=== PATIENT | female | born 1945 | race Caucasian/White ===

== ENCOUNTER 2022-10-03 15:17 | Outpatient (CLI) | payer MEDICARE, SELFPAY ==
--- NOTE | 2022-10-03 14:45 | DI.RAD_ITS ---
Exam(s) XR KNEE LT 3V AP,LAT,MOISES EXAM: XR KNEE LT 3V AP,LAT,MOISES CLINICAL HISTORY: Right knee pain. TECHNIQUE: 2D digital imaging was performed. COMPARISON: No exams were available for comparison FINDINGS: 3 views No evidence of acute fracture nor obvious joint effusion. No obvious degenerative changes nor osseou s lesions. Some calcification is noted in the popliteal artery. May indicate atherosclerotic involv ement. IMPRESSION: No significant osseous findings left knee. No obvious joint effusion. Vascular calcification noted popliteal artery. I note this patient has numerous endovascular stents in the arteries of the opposite leg. DATA REPOSITORY: RADIATION DOSE DELIVERED:
--- NOTE | 2022-10-03 14:45 | DI.RAD_ITS ---
Exam(s) XR KNEE RT 3V AP,LAT,MOISES EXAM: XR KNEE RT 3V AP,LAT,MOISES CLINICAL HISTORY: RIght knee pain. TECHNIQUE: 2D digital imaging was performed. COMPARISON: No exams were available for comparison FINDINGS: 3 views No evidence fracture but there is a joint effusion signifying probable internal derangement. There i s no prominent joint space narrowing. No osteophytes. Bone density normal. No osseous lesions. Th ere multiple telescoping endoscopic vascular stents in the distal half of the femoral artery and prox imal half of the popliteal artery. IMPRESSION: No osseous lesions knee but there is a prominent knee joint effusion signifying probable internal tiffany angement. Multiple endovascular stents in the femoral artery. DATA REPOSITORY: RADIATION DOSE DELIVERED:
== END 2022-10-03 15:18 | disposition home or self-care (01) ==
LOC: DIORS 15:17
PROVIDERS: PCP Student in an Organized Health Care Education/Training Program; Referring Provider Student in an Organized Health Care Education/Training Program; Visit Provider Student in an Organized Health Care Education/Training Program
DX: M17.11 Unilateral primary osteoarthritis, right knee; M23.203 Derangement of unspecified medial meniscus due to old tear or injury, right knee; M79.18 Myalgia, other site; G89.4 Chronic pain syndrome
CPT/HCPCS: 20610; 73562; 99204; J1030

== ENCOUNTER → 2022-12-05 14:50 | Outpatient (BNVA) | payer MEDICARE, SELFPAY | PROVIDERS: PCP Student in an Organized Health Care Education/Training Program; Referring Provider Student in an Organized Health Care Education/Training Program; Visit Provider Student in an Organized Health Care Education/Training Program | DX: X58.XXXA Exposure to other specified factors, initial encounter; M17.11 Unilateral primary osteoarthritis, right knee; M79.18 Myalgia, other site; S83.281A Other tear of lateral meniscus, current injury, right knee, initial encounter | CPT/HCPCS: 99214 ==

== ENCOUNTER 2023-01-07 10:26 | Outpatient (CLI) | payer MEDICARE, SELFPAY ==
--- NOTE | 2023-01-07 08:45 | DI.RAD_ITS ---
Exam(s) XR STANDING ALIGNMENT EXAM: XR STANDING ALIGNMENT CLINICAL HISTORY: eval aligment, preop TKA planning. TECHNIQUE: 2D digital imaging was performed. Standing AP views were performed from the pelvis throu gh the ankles. COMPARISON: CR XR KNEE LT 3V AP,LAT,MOISES from 10/03/2022 CR XR KNEE RT 3V AP,LAT,MOISES from 10/03/2022 FINDINGS: BONES: No acute fracture is present. No bony destructive lesion is seen. Leg length discrepancy: The right femoral head projects few millimeters superior to the left. JOINTS: Knees: Mild bilateral valgus angulation. Mild degenerative changes lateral femoral tibial matthew ints. The ankle joints are unremarkable. The hip joints are unremarkable. SOFT TISSUE: Vascular stent noted right lower thigh. IMPRESSION: Mild degenerative changes of the femoral tibial joints.. Minimal leg length discrepancy. DATA REPOSITORY: RADIATION DOSE DELIVERED:
== END 2023-01-07 10:27 | disposition home or self-care (01) ==
LOC: DIORS 10:26
PROVIDERS: PCP Student in an Organized Health Care Education/Training Program; Referring Provider Student in an Organized Health Care Education/Training Program; Visit Provider Student in an Organized Health Care Education/Training Program
DX: M17.11 Unilateral primary osteoarthritis, right knee (principal)
CPT/HCPCS: 99214; 77073

== ENCOUNTER 2023-02-22 04:48 | Outpatient (CLI) | payer MEDICARE, SELFPAY ==
[2023-02-22 12:31] LABS: HCT 35.8 % (36.0-46.0); HGB 11.8 g/dL (11.2-15.7); MCV 91 fL (80-95); MPV 10.5 fL (8.0-11.0); Platelet Count 232 10^3/uL (130-400); RBC 3.93 10^6/uL (3.93-5.22); RDW 13.3 % (11.7-14.6); RDW-SD 44.8 fL; WBC 7.69 10^3/uL (4.4-10.8)
[2023-02-22 13:15] LABS: BUN 31 mg/dL (7-18); CREATININE 1.1 mg/dL (0.55-1.02); Calcium 10.3 mg/dL (8.5-10.1); Chloride 107 mmol/L (98-107); Estimated GFR 52.08 (mL/min/1.73m2); Glucose 109 mg/dL (74-106); Potassium 4.5 mmol/L (3.5-5.1); Sodium 141 mmol/L (136-145)
[2023-02-25 11:28] LABS: Hemoglobin A1C 6.1 % (<5.7)
[2023-02-25 11:43] LABS: Vitamin D 25 Total 30.9 ng/mL (30-100)
== END 2023-02-22 04:49 | disposition home or self-care (01) ==
LOC: LBO 04:48
PROVIDERS: PCP Student in an Organized Health Care Education/Training Program; Visit Provider Student in an Organized Health Care Education/Training Program
DX: R73.03 Prediabetes (principal); E55.9 Vitamin D deficiency, unspecified; M25.561 Pain in right knee; M17.11 Unilateral primary osteoarthritis, right knee; Z01.818 Encounter for other preprocedural examination; Z01.812 Encounter for preprocedural laboratory examination
CPT/HCPCS: 36415; 80048; 82306; 85027; 83036

== ENCOUNTER 2023-03-06 07:15 | Day surgery (SDC) | payer MEDICARE, SELFPAY ==
[2023-03-06] VITALS (12 sets, daily range): BP systolic 132–169; BP diastolic 50–76; PULSE 56–71; RESP 16–20; TEMP 36.1–36.7; O2SAT 95–100; BMI 33.2
[2023-03-06] MEDS: Acetaminophen 500 MG TAB 1000 MG PO ×2 (08:08→15:33)
[2023-03-06] MEDS: Celecoxib 200 MG CAP 400 MG PO (08:08)
[2023-03-06] MEDS: Lactated Ringers 1,000 ML 80 ML IV (08:09)
[2023-03-06] MEDS: Gabapentin 300 MG CAP PO (08:09)
--- NOTE | 2023-03-06 08:41 | ANES.PREOP_ITS ---
General Info Date of Service Date Performed: 03/06/23 Height: 5 ft 11 in Weight: 108 kg Body Mass Index (BMI): 33.2 Surgical Procedure: Operation Date: 03/06/23 09:40 Proposed Procedure Side Surgeon p Knee Total Arthroplasty w/OrthAlign, Cementless CR Right Sammy Rodríguez MD Meds Allergies and Home Medications Allergies Allergy/AdvReac Type Severity Reaction Status Date / Time lisinopril Allergy Verified 03/06/23 07:28 mussels AdvReac Severe Anaphylaxis Uncoded 03/06/23 07:28 Home Medication Medication Instructions Recorded atorvastatin 20 mg tablet 20 mg PO DAILY 09/18/22 clopidogrel 75 mg tablet 75 mg PO DAILY 09/18/22 losartan 100 mg tablet 100 mg PO DAILY 09/18/22 omeprazole 20 mg capsule,delayed 20 mg PO DAILY 09/18/22 release aspirin 81 mg tablet,delayed 81 mg PO DAILY 10/03/22 release acetaminophen 500 mg tablet 1,000 mg (2 x 500 mg) PO TID #90 03/06/23 tabs celecoxib 200 mg capsule 200 mg PO BID #60 caps 03/06/23 dexamethasone 4 mg tablet 4 mg PO DAILY #2 tabs 03/06/23 gabapentin 300 mg capsule 300 mg PO QHS #14 caps 03/06/23 oxycodone 5 mg tablet 5 mg PO Q4H PRN pain #20 tabs 03/06/23 Current Visit Medications: Current Medications Generic Name Dose Route Start Last Admin Trade Name Freq PRN Reason Stop Dose Admin Acetaminophen 1,000 mg 03/06/23 06:00 03/06/23 08:08 Acetaminophen 500 Mg Tab PO 04/05/23 05:59 1,000 mg PREOP GABRIELA Administration Acetaminophen 1,000 mg 03/06/23 07:22 Acetaminophen 500 Mg Tab PO 04/05/23 07:21 TID PRN PRN Analgesia Celecoxib 400 mg 03/06/23 06:00 03/06/23 08:08 Celecoxib 200 Mg Cap PO 04/05/23 05:59 400 mg PREOP GABRIELA Administration Docusate Sodium 100 mg 03/06/23 07:22 Docusate Sodium 100 Mg Cap PO 04/05/23 07:21 BID PRN PRN Constipation Gabapentin 300 mg 03/06/23 06:00 03/06/23 08:09 Gabapentin 300 Mg Cap PO 04/05/23 05:59 300 mg PREOP GABRIELA Administration Ringer's Solution 1,000 mls @ 80 mls/hr 03/06/23 06:00 03/06/23 08:09 IV 04/04/23 23:59 80 mls/hr INFUSION GABRIELA Administration Cefazolin Sodium/Dextrose 2 gm in 50 mls @ 100 mls/hr 03/06/23 06:00 Ancef Duplex IVPB 04/04/23 23:59 PREOP GABRIELA Tranexamic Acid 1,000 mg/ 60 mls @ 360 mls/hr 03/06/23 06:00 Sodium Chloride IVPB 04/05/23 05:59 PREOP GABRIELA IV Miscellaneous Supplies 1 each 03/06/23 06:00 Iv Access IV 04/04/23 23:59 DIRECTED GABRIELA Ondansetron HCl 4 mg 03/06/23 07:22 Ondansetron 4 Mg/2 Ml Vial IVP 04/05/23 07:21 Q6H PRN PRN Nausea Oxycodone HCl 0 mg 03/06/23 07:22 Oxycodone 5 Mg Tab PO 04/05/23 07:21 Q3H PRN PRN Pain Polyethylene Glycol 17 gm 03/06/23 07:22 Polyethylene Glycol 3350 17 Gm Packet PO 04/05/23 07:21 BID PRN PRN Constipation Sodium Chloride 0 ml 03/06/23 06:00 Normal Saline Flush 10 Ml Syr IV 04/04/23 23:59 PRN PRN Sodium Chloride 0 ml 03/06/23 06:00 Normal Saline 10 Ml Vial IJ 04/04/23 23:59 DIRECTED PRN Sterile Water 0 ml 03/06/23 06:00 Water,Injection,Sterile 10 Ml Vial IJ 04/04/23 23:59 DIRECTED PRN PFSH Active Problems Active Problems: Problem Status Onset Code Arthritis of right knee M17.11 Amplified musculoskeletal pain M79.18, G89.4 Patellofemoral arthritis of right knee M17.11 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 had elevated BP at ortho office (19 0/89)...consulted with LP, had pt. do several BP readings at home, as patient stated anytime she is in the MD office it is elevated (per ortho has sig. white coat syndrome). Home BP readings: 149/80, evenin/83, next AM: 155/85. Surgical History Surgical History History of intravascular stent placement SFA stent placed in 2019 Tobacco Smoking/Tobacco Use Status: Never Alcohol Alcohol Intake: current Alcohol intake frequency: a few times a week Alcohol type: beer Substance Use Substance use: Never Substance use type: does not use Vital Signs and Lab Results Vital Signs Most Recent Vital Signs in EMR: Most Recent Vital Signs Temp Pulse Resp BP Pulse Ox 36.6 C 62 18 144/69 H 96 03/06/23 08:24 03/06/23 08:24 03/06/23 08:24 03/06/23 08:24 03/06/23 08:24 Lab Results Blood Type / Crossmatch: No Data to Display Complete Blood Count: White Blood Count 7.69 10^3/uL (4.4-10.8) 02/22/23 12:15 Red Blood Count 3.93 10^6/uL (3.93-5.22) 02/22/23 12:15 Hemoglobin 11.8 g/dL (11.2-15.7) 02/22/23 12:15 Hematocrit 35.8 % (36.0-46.0) L 02/22/23 12:15 Platelet Count 232 10^3/uL (130-400) 02/22/23 12:15 Complete Metabolic Panel: Sodium 141 mmol/L (136-145) 02/22/23 12:15 Potassium 4.5 mmol/L (3.5-5.1) 02/22/23 12:15 Chloride 107 mmol/L (98-107) 02/22/23 12:15 Carbon Dioxide 25.0 mmol/L (21.0-32.0) 02/22/23 12:15 BUN 31 mg/dL (7-18) H 02/22/23 12:15 Creatinine 1.1 mg/dL (0.55-1.02) H 02/22/23 12:15 Est GFR (CKD-EPI 2020) 52.08 (mL/min/1.73m2) 02/22/23 12:15 Calcium 10.3 mg/dL (8.5-10.1) H 02/22/23 12:15 Glucose 109 mg/dL (74-106) H 02/22/23 12:15 Hemoglobin A1c 6.1 % (<5.7) H 02/22/23 12:15 Liver Function Panel: No Data to Display Coagulation Panel: No Data to Display Cardiac Panel: No Data to Display Arterial Blood Gas: No Data to Display Venous Blood Gas: No Data to Display Pancreas Panel: No Data to Display Thyroid Panel: No Data to Display Infectious Disease: No Data to Display Blood Cultures: No Data to Display Toxicology Panel: No Data to Display Anesthesia Assessment and Plan Anesthesia History Personal History: No History of Anesthesia Complications Family History: No Family History of Anesthesia Complications Exercise Tolerance Exercise Tolerance: Metabolic Equivalents>4 Pertinent Negatives Pertinent Negatives: No Symptoms of GERD, No Major Cardiovascular Symptoms or Co mplaints and No Major Pulmonary Symptoms or Complaints Cardiac & Pulmonary Exam Cardiac Exam: Normal S1/S2 Heart Sounds Pulmonary Exam: Clear Bilateral Breath Sounds Implantable Cardiac Device Does patient have a Pacemaker or an ICD?: No Airway Exam Known Difficult Airway: No Mallampati Class: 3 Mouth Opening: Normal (> 3cm) Thyromental Distance: Greater than 3 cm Neck Range of Motion: Full ROM Neck Circumference: Normal Teeth Condition: Normal Dentition ASA Classification ASA Score: ASA 3 Emergency Case?: No NPO Status NPO Status: NPO Clears >2 hours, Solids >8 hours Anesthesia Plan Resuscitation Status: Full Code Anesthesia Technique: Spinal Anesthesia Airway Planned: Natural Airway Pain Management: Surgeon and patient request nerve block Monitors Used: Standard Monitors
--- NOTE | 2023-03-06 09:22 | W.ANESNERVE ---
Nerve Block Single Injection Procedure Date and Time Date Performed: 03/06/23 Procedure Start: 09:04 Location Where Procedure Performed Procedure Location: Day Surgery Unit Reason Performed: Postoperative Analgesia Requesting Provider: Sammy Rodríguez Timeout Performed Timeout Performed: Yes Monitoring Used ECG, Blood Pressure, SpO2 and See EMR for corresponding vital signs Sterility Sterility: Hand Hygiene, Surgical Cap, Surgical Mask, Sterile Gloves and Chlorhexidine Sedation Given During Procedure Sedation Given (Indicate Dose Given): Versed IV Dose:: 2mg Patient Mental Status Patient Mental Status: Sedate with meaningful communication Nerve Block 1st Nerve Block: Laterality: Right Block Type: Adductor Canal Ultrasound Image Saved?: Yes Needle / Catheter Used: 100mm SonoPlex II Local Anesthetic Bolus (Indicate Dose Given): Lidocaine used for local infiltration of skin, Injected in 3-5ml increments after negative blood aspiration and Bupivacaine 0.25% Dose:: 15mL Additives (Indicate Dose Given): None Ultrasound: Sterile probe cover and gel used Nerve Stimulator: Supplement to Ultrasound use and No twitch or parasthesia noted < 0.5 mA Paresthesia: None Procedure Tolerated: No Complications and Patient tolerated well Procedure Outcome: Successful Performed By: Maribel Fontaine
[2023-03-06] MEDS: ceFAZolin 2 GM/50 ML BAG IVPB (10:05)
--- NOTE | 2023-03-06 11:35 | PDOC.DSDIS_ITS ---
Date of service: 03/06/23 Time of Service: 13:30 Discharge Plan Disposition Patient Disposition: Home Condition: Good Discharge Details Reason For Visit: R TKR Attending Provider: Sammy Rodríguez Primary Care Provider: Lesvia Mauricio Home Meds and New Rx's Prescriptions: New celecoxib 200 mg capsule 200 mg PO BID Qty: 60 0RF acetaminophen 500 mg tablet 1,000 mg PO TID Qty: 90 3RF dexamethasone 4 mg tablet 4 mg PO DAILY Qty: 2 0RF gabapentin 300 mg capsule 300 mg PO QHS Qty: 14 0RF oxycodone 5 mg tablet 5 mg PO Q4H MDD 6 tabs PRN (Reason: pain) Qty: 20 0RF Continued aspirin 81 mg tablet,delayed release (DR/EC) 81 mg PO DAILY losartan 100 mg tablet 100 mg PO DAILY atorvastatin 20 mg tablet 20 mg PO DAILY omeprazole 20 mg capsule,delayed release(DR/EC) 20 mg PO DAILY clopidogrel 75 mg tablet 75 mg PO DAILY Discharge Instructions Additional Instructions: Total Knee Discharge Instructions Activity: The most important activity is to walk and to work on gentle motion (both flexion and extension). You should try to take short walks a few times a day. It is important that when resting you work on keeping the knee straight. Avoid putting a pillow behind the knee as this will encourage flexion. Work on range of motion exercises as provided by Physical Therapy. - Start outpatient physical therapy within 2 weeks. - You should wear the TARYN hose on both legs for 2 weeks. You may remove these at night. You may also use any compression sock in place of the TARYN hose. - Utilize [employer] to review exercises, see videos on exercises and obtain basic information pertaining to your surgery and your recovery. Dressing: Remove the Artis wrap by 2 days after your surgery and put on the TARYN stocking given to you from the hospital. Keep the surgical dressing (underneath the ARTIS wrap) in place for at least one week. After the first week it may be removed and replaced with light gauze and tape or nothing. The wound and dressing may get wet after 3 days but avoid soaking the dressing or otherwise it will need to be changed. Many people prefer covering the dressing with cling wrap (saran wrap) to minimize it from getting soaked. If it gets wet, just pat dry. If it starts to peel off then it will need to be changed. Medications: - You should take Tylenol and anti-inflammatory Celebrex as your primary pain control medications. If the Celebrex is too expensive or not covered, please call the office for another alternative (Advil/Ibuprofen or Naproxen/Aleve) - You have been prescribed a stronger pain medication Oxycodone for breakthrough pain, take as needed as prescribed. - You have also been prescribed a stomach acid reduction agent Pantoprozole to help reduce stomach acid and reflux. - You have been prescribed Gabapentin to take at night for restlessness and nerve pain. - You will be continuing your clopidogrel and asprin for DVT prevention unless instructed otherwise. - You have also been prescribed Decadron to take to control post-operative nausea and pain. You will start this tomorrow. - If you have constipation you should take Colace or Miralax (both [id number]). It takes most people 3-4 days to have a bowel movement. Follow-up: 2 weeks If you have any acute concerns or questions, please do not hesitate to contact the office at [phone]. You may contact Dr. Rodríguez with any questions after hours through the hospital at [phone] or on his cell phone at [phone]. Stand Alone Forms: Anesthesia Discharge Inst., Estefanis.Nerve Block Instructions, Zaynab Storey (DSU) Referrals: Sammy Rodríguez MD [ [facility] STAFF PHYSICIAN] - Equipment/Supplies: Walker Activity:: Activity as Tolerated Shower/Bathe:: 72 hours Diet:: As Tolerated Discharge Orders Discharge Orders: Discharge Order (Routine); Ordered 03/06/23 Ordered By: Sammy Rodríguez DS: Diagnosis Discharge Diagnosis (1) Arthritis of right knee: Status: Acute
[2023-03-06] MEDS: oxyCODONE 5 MG TAB PO (13:40)
--- NOTE | 2023-03-06 13:45 | PT.INIE ---
PT Notes Visit Reasons: R TKR Physical Therapy Day Surgery Initial Evaluation Date: 03/06/2023 Referring Doctor: DANNY Prince PT Orders: PT CONSULT: S/P Ortho Surgery Precautions: WBAT on the R LE with AD. Patient Profile/Admitting Diagnosis: Chanda is a 78-year-old female with degenerative joint disease of the right knee and status post right total knee arthroplasty on postoperative day 0. PMHX: Medical History Essential hypertension GERD (gastroesophageal reflux disease) Surgical History History of intravascular stent placement SFA stent placed in 2019 Social History/Home Situation: Lives with in a home with 2 steps to enter with a post on 1 side. Has 6 steps leading to a landing, 4 steps leading to a second landing, 2 steps to athid landing and 2 steps to the entrance of their bedroom on the second floor with a rail on the R going up. Equipment Owned/DME: SPC, raised toilet seat, ANDRIA Subjective: 6/10 pain in the R knee at rest before Pt arrived, down to 4/10 with ambulation that did ot limit ability to complete mobility assessment. Denies headache, chest pain, and lightheadedness throughout session Objective: General Observation: Supine in bed. WES wraps to right LE. Cryo/Cuff to right knee. TEDs to left leg. Mental Status: Alert and oriented x4 Pain: As above ROM: Right Lower Extremity: Hip flexion WFL. Hip abduction WFL. Knee flexion 20 degrees to 100 degrees. Knee extension -20 degrees. Ankle dorsiflexion WFL. Ankle plantarflexion WFL. Left Lower Extremity: Hip flexion WFL. Hip abduction WFL. Knee flexion WFL. Ankle dorsiflexion WFL. Ankle plantarflexion WFL. Strength: Right Lower Extremity: Hip flexors 4/5. Hip abductors 4/5. Knee flexors 3-/5. Knee extensors 3-/5. Ankle dorsiflexors 5/5. Ankle plantarflexors 5/5. Left Lower Extremity:Hip flexors 5/5. Hip abductors 5/5. Knee flexors 5/5. Knee extensors 5/5. Ankle dorsiflexors 5/5. Ankle plantarflexors 5/5. Sensation: Intact as to pain and light pressure in bilateral lower extremities Bed Mobility/Transfers: Supine to sit standby assist with cues provided to use both hands as needed Sit to stand contact-guard assist with cues provided for hand placement and use of FWW Stand to sit standby assist assist with cues provided for hand placement and use of FWW Bed to chair standby assist assist with cues provided for hand placement and use of FWW Gait: Facilitated safe and correct performance of level surface ambulation using front wheeled walker covering a distance of 150 feet to with step through heel?toe gait pattern requiring only standby assist with cues provided for limb advancement, ensuring full terminal knee extension on the right, posture, AD management, and directional changes. Stairs: Guided patient with safe and correct navigation of 6 x 4 inch steps and 4 x 6 inch steps while holding onto a rail on the right side going up and using a single-point cane with the other hand requiring only standby assist with minimal verbal cueing for AD management and increased knee flexion during ascent on the right side. Stand by assist provided. Balance: Static Sitting: Normal Dynamic Sitting: Normal Static Standing: Fair Dynamic Standing: Fair Special Tests: Mobility Limitations Standardized Measure [facility] AM-PAC 6 clicks Basic Mobility Inpatient Short Form: Raw Score: 23 CMS Score: 11% deficit Informed Consent/Education: Patient instructed in purpose of PT consult. Packet containing TKA exercise protocol has been given to patient. Education and training on initial set of exercises that can be done at home have been completed with patient. THERA ACT: Trained patient with correct performance of exercises below to maximize motor control, joint flexibility, soft tissue extensibility of the R knee musculature: Access Code: [email or web address] URL: [email or web address] Date: 03/06/2023 Prepared by: Monisha Lafleur Exercises - Supine Quad Set - 1 x daily - 7 x weekly - 1 sets - 10 reps - 5 hold - Supine Heel Slide - 1 x daily - 7 x weekly - 1 sets - 10 reps - 5 hold - Supine Ankle Pumps - 1 x daily - 7 x weekly - 1 sets - 10 reps - 5 hold - Small Range Straight Leg Raise - 1 x daily - 7 x weekly - 1 sets - 10 reps - 5 hold - Seated March - 1 x daily - 7 x weekly - 1 sets - 10 reps - 5 hold Assessment: Patient requires the use of a front wheeled walker for all mobility ADL performance to maximize independence and reduce fall risk. Patient presents with clinical signs and symptoms consistent with current/admitting diagnoses that have resulted to mobility limitations, gait instability, generalized weakness, and impairment of motor control as demonstrated by the following impairment level findings: 1. Decreased strength to right knee major muscle groups 2. Impaired standing balance 3. Limitation of joint range of motion in right knee Impairments are contributing to the following functional limitations: 1. Inability to safely ambulate without assistive device 2. Increase completion time for mobility ADL performance 3. Increased fall risk Patient is assessed as a 43785 moderate complexity based on the following: History: 78-year-old female with impairment level findings, functional limitations, and past medical history as indicated above Examination: Demonstrable impairment in strength, balance, and mobility level with underlying impairments and functional limitations as documented above Presentation: Evolving Decision Makin moderate complexity Goals: N/A. PT evaluation and 1-2 treatment sessions only for functional mobility training using recommended AD and for HEP instruction. Plan of Care/Treatment Plan: N/A. PT evaluation and 1-2 treatment session only for functional mobility training using recommended AD and for HEP instruction. DISCHARGE RECOMMENDATIONS: Home when medically cleared by orthopedic surgeon. Recommend outpatient PT services in order to optimize functional mobility outcomes and facilitate return to independent community ambulation without an assistive device. TREATMENT CODE/TIME: [] 09644 x 20 minutes for 1 unit, 29713 x 25 minutes for 2 units beginning at 13:45 PM. Thank you for the opportunity to participate in the care of this patient. Monisha Lafleur PT, DPT, CLT [facility] [place], [place]
--- NOTE | 2023-03-06 14:34 | W.PM.OP ---
Date of service: 03/06/23 Time of Service: 10:30 Operative Note Operative Note DATE OF PROCEDURE: 03/06/23 PRE-OP DIAGNOSIS: Right Knee Arthritis POST-OP DIAGNOSIS: same PROCEDURE: Right Total Knee Replacement SURGEON: Sammy Rodríguez CHIEF ENGINEER [employer]ATERWORKS: Patrick Mayen ANESTHESIA TYPE: Spinal Refer to Anesthesia Record ESTIMATED BLOOD LOSS: 50 PATHOLOGY: none sent TOURNIQUET TIME: 0 COMPLICATIONS: None Patient was transported to: PACU Patient's condition: stable Implants: 1. Depuy Attune Cementless Cruciate Retaining Femoral Component, Size 7 2. Depuy Attune Cementless Fixed Bearing Tibial Component, Size 6 3. Depuy Attune 7x6 CR/FB Poly 4. Depuy Attune Patellar Component, Size 38 Indications: I have seen Jagjit in clinic for symptoms of knee arthritis, confirmed with radiographic findings. She has exhausted nonoperative methods and was having significant limitations in daily function and desired better function and less pain. I discussed the technical details of a knee replacement. I explained the risks of the procedure to include, but not limited to, bleeding, infection, pain, stiffness, fracture, damage to nerves and vessels, damage to muscles and tendons, loosening, need for repeat procedure, blood clot and cardiopulmonary demise. Despite these risks, Jagjit elected to proceed. 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 Procedure Description: Jagjit was greeted in the preoperative holding area where the correct side was identified and marked. The consent was reviewed with the patient and signed. The history and physical was updated. All questions were answered. Preoperative medications were administered: Acetaminophen 1000mg, Celebrex 400mg, and Gabapentin 300mg. An adductor canal block was then administered by the anesthesia team in the PACU. Jagjit was taken back to the operating room. A spinal anesthestic was then administered. The patient was placed into the supine position on the operating room table. A nonsterile tourniquet was placed high onto the leg but only used for cementing. Posts were placed for positioning during the procedure. All bony prominences were well padded. Prophylactic antibiotics in the form of Cefazolin were administered. 1g of Tranxemic Acid was given intravenously within 30 minutes of incision. The right leg was then prepped with Chloraprep and draped in a standard fashion with impervious stockinette. A second prep with Chloraprep was performed prior to application of Iodine impregnated skin protection. A timeout to confirm correct identity, side and site, procedure, allergies, anesthesia, and medical concerns was performed. With the knee in some flexion, a midline incision was made overlying the knee. Full thickness skin flaps were raised once the extensor mechanism was encountered. These were raised medially and laterally. Any bleeding was controlled with electrocautery. Once the extensor mechanism was fully exposed, a medial parapatellar arthrotomy was performed in a flexed position. All bleeding from the arthrotomy and the geniculate arteries was coagulated. A medial subperiosteal peel was performed with electrocautery to the midcoronal plane. The fat pad was removed while keeping the patellar tendon protected. The anterior distal femur synovium was removed for later visualization. The ACL and PCL were resected and the anterior horn of the lateral meniscus was transected. The knee was then flexed with the patella everted. Using a step drill, and based on preoperative templating, the femoral canal was entered. This was done with a step drill without any difficulty. The intramedullary distal femoral cut guide was inserted, set to a 5 degree valgus cut and 9mm cut thickness. The distal femoral cut guide was then held in position and pinned. With the soft tissues protected, the distal cut was performed. This was passed over a few times to ensure a planar cut. I then turned attention to the tibia. The extramedullary guide was placed onto the leg. The distal aspect was slid medial to adjust for position of center of ankle and stay in line with shaft of the tibia. Approximately 3-5 degrees of posterior slope was kept in the proximal cutting guide. The center of the guide was aligned with the PCL. The stylus was used to assess cut thickness. A balanced cut was preoperatively planned and cut at about 6mm laterally and 7mm medially. This was then held in position and pinned into place with 2 additional pins and a cross pin for stability. The medial and lateral collateral ligaments were protected and the cut was performed. With this completed, it was assessed and noted to be of appropriate dimensions. The guide was removed. A spacer block was inserted and the knee was brought into extension. The 6mm spacer block provided full extension, without hyperextension and with stability of both the medial and lateral collateral ligaments was assessed. The pins from the femur and the tibia were then removed. The distal femur was then sized. The anterior stylus was placed onto the lateral ridge of the anterior femur. This indicated a size 7 femur. The external rotation of the guide was adjusted to 0 degrees to match the epicondylar axis, perpendicular to Erick?s line. The 4-in-1 cutting guide was the placed. The posterior medial femur cut was evaluated and appeared of good thickness. The spacer block was inserted underneath the cutting guide and stability was confirmed in 90 degrees of flexion. An mishel wing was used to confirm appropriate position of the anterior cut to avoid notching. This cutting guide was ensured to be flush on the cut surface and then pinned into place with headed pins. While protecting the soft tissues, quad tendon, and collateral ligaments, the anterior and posterior cuts were performed with a saw. The central two pins were removed and the posterior and anterior chamfers were cut next. The notch-cutting guide was placed. This was pinned to lateralize the femoral component as much as possible while keeping it flush on the cut surface. This was then pinned into position. A reciprocating saw was used to make the notch cut. A rasp smoothed the cut surfaces. The medial and lateral menisci were removed. A trial femoral component was then inserted, impacted down to the cut surfaces, and the lug holes were drilled. A provisional trial tibial component was placed and the knee was brought through range of motion. There was noted to be excellent extension and flexion. There was no significant instability. The patella was tracking without thumbs. A size 6mm polyethylene component provided the best range of motion and stability with less than 2mm gapping with medial and lateral stress and full extension without significant hyperextension. The tibial cut surface was fully exposed. The tibia was then sized as a 6. The tibia had been previously marked during trialing to correspond to the center of the tibial component to help with rotation. The trial was aligned to this patrick, approximately rotated to the medial 1/3rd of the tibial tubercle. The trial was pinned into place. The tibia was prepared with a reamer and a keel punch and lug holes. The knee was then brought into extension and the patella was measured as 25mm. Using the patellar clamp and cut guide, this was resected to a flat surface with at least 13mm of thickness remaining. The size 38 patella fit the best. This was oriented and then clamped into position. The lugs were drilled. The trial components were removed. The final components were opened on the back table. The periosteal and capsular tissues, especially posteriorly, around the knee were then systematically injected with a periarticular cocktail consisting of 246mg of Ropivacaine, 0.5mg of Epinephrine, 0.08mg of Clonidine, and 30mg of Ketorolac, diluted to 100cc. On the back table, with the implants opened, the cement was mixed. One batch of high viscosity cement was prepared with vacuum assistance. After the cement was ready a small amount was placed on the cut surface of the patella and the patellar button was clamped into position and held. While the cement was hardening, the cementless knee components were placed. Starting with the tibial component, the tibia was subluxed anteriorly and the lug holes of the component were lined up. The tibia was then impacted with an impactor and mallet until the tibial component was in contact with the tibia. The final polyethylene component was inserted. Then, the femoral component was inserted. The lug holes were aligned and the component was impacted into position. The knee was irrigated with Surgiphor Betadine solution. This was allowed to sit in the knee for 3 minutes and then it was irrigated out with saline. After the cement had finally cured, approximately 15min, the clamp was removed from the patella and the knee was taken through range of motion. The patella was tracking with a no-thumbs technique. The capsule was then reapproximated with a No. 1 Vicryl at multiple locations. The capsule was finally closed with a No. 2 Stratafix, barbed suture. The second dosing of 1g TXA was started. Deep tissues were then reapproximated with 0 Vicryl and 2-0 Vicryl. The skin was closed with a running 3-0 Monocryl in a subcuticular fashion. This was reinforced with skin glue. A Mepilex silver dressing was applied along with a [id number] WES wrap. A CryoCuff was applied. Jagjit was transferred to the hospital bed without difficulty an suffering no apparent complication. Jagjit has a good prognosis. Physical therapy will start today and without restrictions, weight-bearing as tolerated. Aspirin 81mg and Plavix will be used for DVT prophylaxis.
--- NOTE | 2023-03-06 17:49 | W.ANESPOSTOP ---
Postoperative Evaluation Date, Time and Location Date Performed: 03/06/23 Time Performed: 15:35 Patient Location: Day Surgery Unit Vital Signs Most Recent Imported Vital Signs: Most Recent Vital Signs Temp Pulse Resp BP Pulse Ox 36.3 C L 66 18 148/50 H 97 03/06/23 14:45 03/06/23 14:45 03/06/23 14:45 03/06/23 14:45 03/06/23 14:45 Pain Score Most Recent Pain Score: Most Recent Pain Score Pain Level 2 03/06/23 14:45 Assessment Mental Status: Awake (Alert & Oriented to Patient Baseline) Airway and Respiratory Function: Patent airway with normal (patient baseline) respiratory exam Cardiovascular Function: Hemodynamically Stable Hydration Status: Adequately Hydrated Nausea & Vomiting: No Nausea or Vomiting Pain: Pt. Denies Any Pain Peripheral Nerve Block: Regional nerve block not resolved at time of post operative discharge
== END 2023-03-06 16:00 | disposition home or self-care (01) ==
PROVIDERS: PCP Student in an Organized Health Care Education/Training Program; Visit Provider Student in an Organized Health Care Education/Training Program
PROC: (CPT 27447; principal; 2023-03-06 09:30)
DX: M17.11 Unilateral primary osteoarthritis, right knee (principal); I10 Essential (primary) hypertension; K21.9 Gastro-esophageal reflux disease without esophagitis; I73.9 Peripheral vascular disease, unspecified
CPT/HCPCS: 27447; C1776; 76942; 97162; 97530; J0690; J1100; J2001; J2250; J2371; J2405

== ENCOUNTER → 2023-03-21 00:55 | Outpatient (CLI) | payer MEDICARE, SELFPAY ==
--- NOTE | 2023-03-21 14:59 | DI.US_ITS ---
Exam(s) US LOWER EXTREMITY VENOUS RT EXAM: US LOWER EXTREMITY VENOUS RT CLINICAL HISTORY: Eval swelling, temp diff with h/o pop art stent M79.89 SOFT TISSUE DISORDER. TECHNIQUE: Lower extremity venous ultrasound performed using grayscale, color-flow, and spectral Do ppler analysis. COMPARISON: No exams were available for comparison FINDINGS: The common femoral, femoral and popliteal veins demonstrate normal compressibility, augmentation, and color Doppler. The posterior tibial veins are patent. No saphenous vein thrombosis or other superfi cial venous thrombosis is seen. No hematoma or Sandoval's cyst is seen. IMPRESSION: Negative lower extremity ultrasound. No evidence of DVT. DATA REPOSITORY:
== END ==
PROVIDERS: PCP Student in an Organized Health Care Education/Training Program; Visit Provider Student in an Organized Health Care Education/Training Program
DX: M79.89 Other specified soft tissue disorders (principal); Z47.1 Aftercare following joint replacement surgery; M17.12 Unilateral primary osteoarthritis, left knee; Z96.651 Presence of right artificial knee joint
CPT/HCPCS: 73560; 77073; 93971

== ENCOUNTER → 2023-03-21 12:54 | Outpatient (BNVA) | payer MEDICARE, SELFPAY | PROVIDERS: PCP Student in an Organized Health Care Education/Training Program; Referring Provider Student in an Organized Health Care Education/Training Program; Visit Provider Physician Assistant ==

== ENCOUNTER 2023-03-21 18:39 | Outpatient (CLI) | payer MEDICARE, SELFPAY ==
--- NOTE | 2023-03-21 13:39 | DI.RAD_ITS ---
Exam(s) XR STANDING ALIGNMENT XR KNEE RT 1V EXAM: XR STANDING ALIGNMENT CLINICAL HISTORY: 1ST POST OP R TKA. TECHNIQUE: 2D digital imaging was performed. Standing AP views were performed from the pelvis throu gh the ankles. COMPARISON: CR XR STANDING ALIGNMENT from 01/07/2023 CR XR KNEE RT 1V from 03/21/2023 FINDINGS: BONES: No acute fracture is present. No bony destructive lesion is seen. Leg length discrepancy: JOINTS: Knees: No change in the alignment of right knee prosthesis. No abnormal bony lucencies. Mil d degenerative changes of the right knee. Ankles: Degenerative changes right talofibular joint. The hip joints are unremarkable. SOFT TISSUE: Arterial stent posterior to right knee. IMPRESSION: Mild degenerative changes of the left knee. Right knee prosthesis is unremarkable.. No significant leg length discrepancy. DATA REPOSITORY: RADIATION DOSE DELIVERED:
== END 2023-03-21 18:40 | disposition home or self-care (01) ==
LOC: DIORS 18:42
PROVIDERS: PCP Student in an Organized Health Care Education/Training Program; Visit Provider Physician Assistant
DX: Z96.651 Presence of right artificial knee joint (principal); Z47.1 Aftercare following joint replacement surgery
CPT/HCPCS: 73560; 77073

== ENCOUNTER → 2023-04-18 10:59 | Outpatient (BNVA) | payer MEDICARE, SELFPAY | PROVIDERS: PCP Student in an Organized Health Care Education/Training Program; Referring Provider Student in an Organized Health Care Education/Training Program; Visit Provider Student in an Organized Health Care Education/Training Program | DX: Z47.1 Aftercare following joint replacement surgery (principal); Z96.651 Presence of right artificial knee joint ==

== ENCOUNTER → 2023-05-30 11:17 | Outpatient (BNVA) | payer MEDICARE, SELFPAY | PROVIDERS: PCP Student in an Organized Health Care Education/Training Program; Referring Provider Student in an Organized Health Care Education/Training Program; Visit Provider Student in an Organized Health Care Education/Training Program | DX: Z47.1 Aftercare following joint replacement surgery (principal); Z96.651 Presence of right artificial knee joint ==

== ENCOUNTER → 2023-08-29 11:14 | Outpatient (BNVA) | payer MEDICARE, SELFPAY | PROVIDERS: PCP Student in an Organized Health Care Education/Training Program; Referring Provider Student in an Organized Health Care Education/Training Program; Visit Provider Student in an Organized Health Care Education/Training Program | DX: Z96.651 Presence of right artificial knee joint (principal); Z47.1 Aftercare following joint replacement surgery | CPT/HCPCS: 99213 ==

== ENCOUNTER → 2024-03-05 13:00 | Outpatient (BNVA) | payer MEDICARE, SELFPAY | PROVIDERS: PCP Student in an Organized Health Care Education/Training Program; Referring Provider Student in an Organized Health Care Education/Training Program; Visit Provider Student in an Organized Health Care Education/Training Program ==

== ENCOUNTER 2024-03-05 14:55 | Outpatient (CLI) | payer MEDICARE, SELFPAY ==
--- NOTE | 2024-03-05 13:26 | DI.RAD_ITS ---
Exam(s) XR KNEE RT 3V AP,LAT,MOISES EXAM: XR KNEE RT 3V AP,LAT,MOISES CLINICAL HISTORY: annual f/u S/P R TKA. TECHNIQUE: 2D digital imaging was performed. Three images were obtained. AP, lateral and oblique vi ews were obtained. COMPARISON: CR XR KNEE RT 1V from 03/21/2023 FINDINGS: BONES: There are stable post operative changes of a right total knee replacement present. No fractur e or dislocation. JOINTS: The orthopedic hardware is in good position. No evidence of hardware loosening. SOFT TISSUE: There is a vascular stent in the posterior soft tissues. IMPRESSION: Stable right total knee arthroplasty. DATA REPOSITORY: RADIATION DOSE DELIVERED:
== END 2024-03-05 14:56 | disposition home or self-care (01) ==
LOC: DIORS 14:55
PROVIDERS: PCP Student in an Organized Health Care Education/Training Program; Visit Provider Student in an Organized Health Care Education/Training Program
DX: Z47.1 Aftercare following joint replacement surgery (principal); Z96.651 Presence of right artificial knee joint
CPT/HCPCS: 73562; 99214

== ENCOUNTER 2025-02-11 14:40 | Outpatient (CLI) | payer MEDICARE, SELFPAY ==
--- NOTE | 2025-02-11 13:15 | DI.RAD_ITS ---
Exam(s) XR KNEE RT 2V AP,LAT EXAM: XR KNEE RT 2V AP,LAT INDICATION: ANNUAL R TKA. COMPARISON: CR XR KNEE RT 3V AP,LAT,MOISES from 03/05/2024 TECHNIQUE: 2D digital imaging was performed. Two views. FINDINGS: Stable alignment of total knee prosthesis. No abnormal surrounding bony lucencies. Femoral artery stent again noted. DATA REPOSITORY: RADIATION DOSE DELIVERED:
== END 2025-02-11 14:41 | disposition home or self-care (01) ==
LOC: DIORS 14:40
PROVIDERS: PCP Student in an Organized Health Care Education/Training Program; Referring Provider Student in an Organized Health Care Education/Training Program; Visit Provider Student in an Organized Health Care Education/Training Program
DX: Z47.1 Aftercare following joint replacement surgery (principal); Z96.651 Presence of right artificial knee joint; M76.61 Achilles tendinitis, right leg
CPT/HCPCS: 99213; 73560